=== PATIENT | female | born 1985 | race Caucasian/White ===

== ENCOUNTER → 2018-12-06 | Outpatient (CLI) | payer SELFPAY ==
[~2018-12-06] VITALS: Ht 160 cm; Wt 98.0 kg
[~2018-12-06] MED LIST: CATHETER FLUSH 10 ML SYR IV PRN
[2018-12-06 13:12] VITALS: BP 177/95
[2018-12-06 13:26] VITALS: BP 188/100
--- NOTE | 2018-12-06 15:13 | STRESS TEST ---
DATE OF SERVICE: 12/06/2018 EXERCISE MYOVIEW STRESS TEST REPORT REFERRING PHYSICIAN: Dr. Paola Bingham. Baseline heart rate is 54. Baseline blood pressure 154/91. Baseline EKG is sinus rhythm with no ischemic changes. In summary, the patient was injected with 10.43 mCi of technetium-99 Myoview and the resting images were obtained. Then, the patient started exercising with a baseline heart rate, blood pressure and EKG mentioned above. The patient was able to exercise for a total of 8 minutes 30 seconds on standard Jamal protocol. With peak exercise level, heart rate was 161, blood pressure was 192/100. The patient was injected with 10.43 mCi of technetium-99 Myoview. Throughout the test, EKG was showing minimal nondiagnostic changes resolved during recovery. The resting and stress images were reviewed and compared in the short axis, horizontal long axis, and vertical long axis views. Review of the images showed breast attenuation affecting the quality of the images. There is no significant ischemia or infarction. SSS is 2, SDS 0, TID value 0.89. On the gated images, the left ventricle appeared to be in normal size with normal contractility. Calculated ejection fraction 64%. CONCLUSION: 1. Good exercise tolerance, a total of 8 minutes 30 seconds on standard Jamal protocol, total of 10.3 METS achieving 87% of maximum expected heart rate. 2. Hypertensive response to exercise, returned to baseline during recovery. 3. Nondiagnostic EKG changes with exercise returned to baseline during recovery. 4. Breast attenuation with typical female pattern with no significant ischemia or infarction on SPECT images. 5. Normal left ventricular size with normal contractility. Calculated ejection fraction 64%. Job ID: [id number] DocumentID: [id number] Dictated Date: 12/06/2018 14:56:33 [employer] Date: 12/06/2018 15:12:24 Dictated By: WOODY ELLINGTON MD
== END ==
LOC: CARD 12:02
PROVIDERS: ATTEND Family Medicine
DX: I10 Essential (primary) hypertension (principal)
CPT/HCPCS: 78452; 93017